=== PATIENT | male | born 1960 | race Caucasian/White ===

== ENCOUNTER 2024-01-25 11:50 | Outpatient (CLI) | payer OTHER, SELFPAY ==
--- NOTE | ~2024-01-25 | CT_ITS ---
EXAMINATION:CT diagnostic chest wo con DATE: 01/25/2024 12:03 INDICATION: Solitary pulmonary nodule. TECHNIQUE: Computed tomography (CT) of the chest was performed without intravenous contrast. Automate d exposure control and iterative reconstruction technique were employed. The dose-length product (DLP ) was 77.20 mGy-cm. COMPARISON: None. FINDINGS: There is a 3 mm nodule in right upper lobe. There is a 2 mm nodule in left upper lobe. No p leural effusion. The heart size is normal. No pericardial effusion. There are cysts in the liver heriberto uring up to 1.4 cm. There is mild thoracic spondylosis. IMPRESSION: 1. Small pulmonary nodules, likely benign. Reviewed, dictated and finalized at location E.
== END 2024-01-25 11:51 ==
LOC: MICIMG 11:51
PROVIDERS: PCP Family Medicine; Visit Provider Family Medicine
DX: R91.1 Solitary pulmonary nodule (principal); R91.8 Other nonspecific abnormal finding of lung field
CPT/HCPCS: 71250